=== PATIENT | female | born 1945 | race Caucasian/White ===

== ENCOUNTER 2018-06-29 18:27 | Emergency (ER) | payer OTHER ==
[~2018-06-29] VITALS: Ht 160 cm; Wt 77.6 kg
[~2018-06-29 18:27] MED LIST: BUS5 PO; GEMFIBROZIL600 MG PO; MOTRIN800 MG PO; OMEPRAZOLE DR20 M1 PO; PRINIVIL10 MG PO; ZOL100
[2018-06-29 18:55] VITALS: Ht 160 cm; Wt 77.6 kg
[2018-06-29 19:57] VITALS: BP 141/80
== END 2018-06-29 19:57 | disposition home or self-care (01) ==
LOC: ED 18:27
DX: S52.511A Displaced fracture of right radial styloid process, initial encounter for closed fracture (principal); Z90.710 Acquired absence of both cervix and uterus; Z90.89 Acquired absence of other organs; W19.XXXA Unspecified fall, initial encounter; Y93.89 Activity, other specified; Y92.89 Other specified places as the place of occurrence of the external cause; Y99.8 Other external cause status
CPT/HCPCS: J1885

== ENCOUNTER 2019-01-09 12:02 | Observation (INO) | payer OTHER | END 2019-01-10 15:20 | disposition home or self-care (01) | LOC: ED 12:02 → DU 14:51 → ED 12:02 → DU 14:51 → ED 12:02 → DU 14:51 → ED 12:02 → DU 14:51 → ED 12:02 → DU 14:51 → ED 12:02 → DU 14:51 ==

== ENCOUNTER 2019-08-14 11:56 | Emergency (ER) | payer OTHER ==
[~2019-08-14] VITALS: Ht 162.6 cm; Wt 77.1 kg
[~2019-08-14 11:56] MED LIST changes: +EPZICOM1 TAB; +LISINOPRIL40 MG PO
[2019-08-14 12:03] VITALS: Ht 162.6 cm; Wt 77.1 kg
[2019-08-14 12:44] LABS: microscopic required? YES; urine erythrocyte 3+ (NEGATIVE)
[2019-08-14 14:05] VITALS: BP 136/70
== END 2019-08-14 14:06 | disposition home or self-care (01) ==
LOC: ED 11:56
PROVIDERS: Specialist
DX: N39.0 Urinary tract infection, site not specified (principal); F32.9 Major depressive disorder, single episode, unspecified; F41.9 Anxiety disorder, unspecified; E78.00 Pure hypercholesterolemia, unspecified; Z90.89 Acquired absence of other organs; Z90.710 Acquired absence of both cervix and uterus

== ENCOUNTER 2019-11-30 10:58 | Emergency (ER) | payer OTHER ==
[~2019-11-30] VITALS: Ht 162.6 cm; Wt 79.4 kg
[2019-11-30 11:09] VITALS: Ht 162.6 cm; Wt 79.4 kg
[2019-11-30 11:22] LABS: BASOPHIL % 0.4 % (0-2); PLATELET COUNT 167 x10^3mcL (130-400); RED CELL DISTRIBUTION WIDTH 13.2 % (11.5-14.5)
[2019-11-30 11:43] LABS: ALBUMIN 3.9 g/dL (3.4-5.0); ALKALINE PHOSPHATASE 81 U/L (46-116); ALT/SGPT 19 U/L (14-59); AST/SGOT 13 U/L (15-37); BILIRUBIN TOTAL 0.4 mg/dL (0.20-1.00); CARBON DIOXIDE 31.7 mmol/L (21-32); CHLORIDE SERUM 104 mmol/L (98-107); CREATININE SERUM 0.6 mg/dL (0.6-1.0); GLUCOSE SERUM 124 mg/dL (74-106); LIPASE 73 IU/L (73-393); SODIUM SERUM 142 mmol/L (136-145); TOTAL PROTEIN, SERUM 7.3 g/dL (6.4-8.2)
[2019-11-30 11:51] LABS: CALCIUM 8.9 mg/dL (8.5-10.1)
[2019-11-30 14:40] VITALS: BP 141/75
== END 2019-11-30 14:40 | disposition home or self-care (01) ==
LOC: ED 10:58
DX: K59.00 Constipation, unspecified (principal); K86.9 Disease of pancreas, unspecified; Z90.89 Acquired absence of other organs; Z90.49 Acquired absence of other specified parts of digestive tract
CPT/HCPCS: 36415; J7030; Q9967

== ENCOUNTER 2020-08-01 11:17 | Emergency (ER) | payer OTHER, SELFPAY ==
[~2020-08-01] VITALS: Ht 160 cm; Wt 77.6 kg
[2020-08-01 11:34] VITALS: Ht 160 cm; Wt 77.6 kg
[2020-08-01 12:10] LABS: BASOPHIL % 0.4 % (0-2); PLATELET COUNT 174 x10^3mcL (130-400); RED CELL DISTRIBUTION WIDTH 13.5 % (11.5-14.5)
[2020-08-01 12:29] LABS: CALCIUM 9.2 mg/dL (8.5-10.1); CARBON DIOXIDE 27.3 mmol/L (21-32); CHLORIDE SERUM 104 mmol/L (98-107); CREATININE SERUM 0.7 mg/dL (0.6-1.0); GLUCOSE SERUM 158 mg/dL (74-106); POTASSIUM SERUM 3.8 mmol/L (3.5-5.1); SODIUM SERUM 141 mmol/L (136-145)
[2020-08-01 12:32] LABS: ALBUMIN 3.9 g/dL (3.4-5.0); ALKALINE PHOSPHATASE 95 U/L (46-116); ALT/SGPT 20 U/L (14-59); AST/SGOT 13 U/L (15-37); BILIRUBIN TOTAL 0.37 mg/dL (0.20-1.00); LIPASE 53 IU/L (73-393); TOTAL PROTEIN, SERUM 7.2 g/dL (6.4-8.2)
[2020-08-01 16:05] VITALS: BP 149/813
== END 2020-08-01 16:05 | disposition home or self-care (01) ==
LOC: ED 11:17
PROVIDERS: Emergency Medicine
DX: J01.90 Acute sinusitis, unspecified (principal); M54.2 Cervicalgia; I10 Essential (primary) hypertension; E78.00 Pure hypercholesterolemia, unspecified; Z90.89 Acquired absence of other organs
CPT/HCPCS: 83880; J1885; J2060; J2405; J7030

== ENCOUNTER 2020-11-05 23:03 | Emergency (ER) | payer OTHER ==
[~2020-11-05] VITALS: Ht 157.5 cm; Wt 78.0 kg
[2020-11-05 23:43] LABS: BASOPHIL % 1.2 % (0.2-1.3); PLATELET COUNT 162 x10^3mcL (179-408); RED CELL DISTRIBUTION WIDTH 13.9 % (12.3-17.7)
[2020-11-05 23:51] LABS: CALCIUM 8.8 mg/dL (8.5-10.1); CARBON DIOXIDE 33.8 mmol/L (21-32); CHLORIDE SERUM 106 mmol/L (98-107); CREATININE SERUM 0.8 mg/dL (0.6-1.0); GLUCOSE SERUM 106 mg/dL (74-106); POTASSIUM SERUM 3.8 mmol/L (3.5-5.1); SODIUM SERUM 141 mmol/L (136-145)
[2020-11-05 23:55] LABS: ALKALINE PHOSPHATASE 85 U/L (46-116); ALT/SGPT 22 U/L (14-59); AST/SGOT 14 U/L (15-37); BILIRUBIN TOTAL 0.3 mg/dL (0.20-1.00)
[2020-11-06 04:05] VITALS: BP 140/76
== END 2020-11-06 04:05 | disposition home or self-care (01) ==
LOC: ED 23:03
PROVIDERS: Student in an Organized Health Care Education/Training Program
DX: F41.9 Anxiety disorder, unspecified (principal); I10 Essential (primary) hypertension; E78.00 Pure hypercholesterolemia, unspecified; Z90.89 Acquired absence of other organs; Z90.710 Acquired absence of both cervix and uterus
CPT/HCPCS: 85378